=== PATIENT | male | born 1975 | race Caucasian/White ===

== ENCOUNTER 2023-02-19 11:51 | Outpatient (CLI) | payer MEDICARE, MEDICAID ==
[~2023-02-19 11:51] MED LIST: ARIP30TA7 PO; BUPR150T8 PO; CLON-527 PO; GABA600T13 PO; GUAN2TAB PO; METH60CP PO; NAPR-56 PO; SERT25TA PO
== END 2023-02-19 23:59 | disposition home or self-care (01) ==
LOC: RAD 11:51
PROVIDERS: ATTEND Nurse Practitioner Psychiatric/Mental Health
DX: R00.1 Bradycardia, unspecified (principal); I51.7 Cardiomegaly; Z79.899 Other long term (current) drug therapy
CPT/HCPCS: 93005

== ENCOUNTER 2024-12-23 09:06 | Outpatient (CLI) | payer MEDICARE, MEDICAID ==
[~2024-12-23 09:06] MED LIST changes: +GABA-1405 PO; -GABA600T13 PO
--- NOTE | 2024-12-23 12:05 | ELECTROCARDIOGRAPH REPORT ---
[facility] Test Date: 2024-12-23 Test Time: 09:24:40 Pat Name: GUANAKO SUH Department: PRE/OP CARDIOLOGY Room: Gender: M Site Controller: RAY : 1975 Requested By: EMI PINO Order Number: [id number] Reading MD: Dr. Lisa Benedict Measurements Intervals [place] Rate: 78 P: 53 CA: 167 QRS: 68 QRSD: 109 T: 57 QT: 391 QTc: 446 Interpretive Statements Sinus rhythm Abnormal R-wave progression, early transition Electronically Signed On 12-24-2024 5:55:[address] Lisa Benedict Please click the below link to view image of tracing.
== END 2024-12-23 23:59 | disposition home or self-care (01) ==
LOC: RAD 09:06
PROVIDERS: ATTEND Nurse Practitioner Psychiatric/Mental Health
DX: F39 Unspecified mood [affective] disorder (principal); Z79.899 Other long term (current) drug therapy
CPT/HCPCS: 93005